=== PATIENT | male | born 1960 | race Hispanic/Latino ===

== ENCOUNTER → 2023-06-03 | Emergency (ER) | payer BC ==
[~2023-06-03] MED LIST: ASPIRIN 81 MG CHEWABLE TABLET ONE; ENOXAPARIN 100 MG/ML SYR SQ ONE; FAMOTIDINE 20 MG/2 ML VIAL IV ONE; MAGNESIUM SULFATE 1 gm IVPB 1 GM/100 ML BAG IV ONE
--- NOTE | 2023-06-03 22:23 | RAD REPORT ---
EXAM DESCRIPTION: RAD - Chest Single View - 06/03/2023 10:12 pm CLINICAL HISTORY: PAIN COMPARISON: <Comparisons> FINDINGS: Lines: None. Lungs: No evidence of edema or pneumonia. Pleural: No significant pleural effusions or pneumothorax. Cardiac: The heart size is within normal limits. Mediastinum: Within normal limits. Bones: No acute fractures. Other: External defibrillator. IMPRESSION: No acute cardiopulmonary disease.
[2023-06-03 22:38] LABS: Absolute Lymphocytes (CBC) 1.8 K/uL (0.7-4.9); Hematocrit 39.2 % (39.6-49.0); Lymphocytes % 18.2 % (15.3-44.8); MCV 90.3 fL (80-100); MPV 8.5 fL (7.6-11.3); Platelets 227 thou/uL (152-406); RBC Red Blood Cell Count 4.35 M/uL (4.33-5.43)
[2023-06-03 22:53] LABS: Protime INR 1.02
[2023-06-03 22:57] LABS: Albumin 3.6 g/dL (3.4-5.0); Bilirubin Direct 0.1 mg/dL (0-0.2); Bilirubin Indirect, Calculated 0.3 mg/dL (0.2-0.8); Bilirubin Total 0.4 mg/dL (0.2-1.0); Magnesium 1.9 mg/dL (1.6-2.4); Potassium 4.2 mEq/L (3.5-5.1); Protein, Total 7.3 g/dL (6.4-8.2)
[2023-06-03 23:01] LABS: Specific Gravity 1.024 (1.005-1.030); Urine Bacteria None Seen /HPF (<20); Urine Bilirubin NEGATIVE (Negative); Urine Blood Negative (Negative); Urine Clarity Clear (Clear); Urine Color Light-Yellow (Yellow); Urine Glucose 3+ (Negative); Urine Mucus Slight /HPF (None Seen); Urine Protein TRACE (Negative); Urine RBC <5 /HPF (None Seen); Urine Urobilinogen Normal (Normal); Urine pH 5.5 (5.0-7.0)
--- NOTE | 2023-06-04 00:10 | EDPHYS ---
Physician Documentation [facility] Name: Win Yang Age: 63 yrs Sex: Male : 1960 Arrival Date: 06/03/2023 Time: 21:48 Bed 6 Private MD: ED Physician Sudarshan Escalona HPI: 06/04 00:03 This 63 yrs old Male presents to ER via Ambulatory with complaints of Life aidee vest problem. 00:03 The patient has shortness of breath with light activity. Onset: The symptoms/episode aidee began/occurred just prior to arrival. Duration: The symptoms are intermittent, with no pattern. The patient's shortness of breath is aggravated by exertion, light activity, is alleviated by nothing, rest, application of supplemental oxygen. The patient or guardian reports chest pain that is located primarily in the anterior chest wall, bilaterally. The pain does not radiate. Associated signs and symptoms: Pertinent positives: chest pain. Severity of symptoms: At their worst the symptoms were moderate in the emergency department the symptoms have improved moderately. The chest pain is described as vague. Historical: - Allergies: 06/03 22:10 No Known Allergies; cm10 - PMHx: 22:10 Hypertensive disorder; heart failure; cm10 22:10 life vest; cm10 - Immunization history:: Adult Immunizations unknown. - Social history:: Smoking status: Patient denies any tobacco usage or history of. - Family history:: not pertinent. ROS: 06/04 00:03 Constitutional: Negative for fever, chills, and weight loss, Eyes: Negative for injury, aidee pain, redness, and discharge, ENT: Negative for injury, pain, and discharge, Neck: Negative for injury, pain, and swelling, Cardiovascular: Negative for chest pain, palpitations, and edema, Abdomen/GI: Negative for abdominal pain, nausea, vomiting, diarrhea, and constipation, Back: Negative for injury and pain, : Negative for injury, bleeding, discharge, and swelling, MS/Extremity: Negative for injury and deformity, Skin: Negative for injury, rash, and discoloration, Neuro: Negative for headache, weakness, numbness, tingling, and seizure, Psych: Negative for depression, anxiety, suicide ideation, homicidal ideation, and hallucinations, Allergy/Immunology: Negative for hives, rash, and allergies, Endocrine: Negative for neck swelling, polydipsia, polyuria, polyphagia, and marked weight changes, Hematologic/Lymphatic: Negative for swollen nodes, abnormal bleeding, and unusual bruising, Respiratory: Positive for shortness of breath, at rest. Exam: 00:03 Constitutional: This is a well developed, well nourished patient who is awake, alert, aidee and in no acute distress. Head/Face: Normocephalic, atraumatic. Eyes: Pupils equal round and reactive to light, extra-ocular motions intact. Lids and lashes normal. Conjunctiva and sclera are non-icteric and not injected. Cornea within normal limits. Periorbital areas with no swelling, redness, or edema. ENT: Nares patent. No nasal discharge, no septal abnormalities noted. Tympanic membranes are normal and external auditory canals are clear. Oropharynx with no redness, swelling, or masses, exudates, or evidence of obstruction, uvula midline. Mucous membranes moist. Neck: Trachea midline, no thyromegaly or masses palpated, and no cervical lymphadenopathy. Supple, full range of motion without nuchal rigidity, or vertebral point tenderness. No Meningismus. Chest/axilla: Normal chest wall appearance and motion. Nontender with no deformity. No lesions are appreciated. Cardiovascular: Regular rate and rhythm with a normal S1 and S2. No gallops, murmurs, or rubs. Normal PMI, no JVD. No pulse deficits. Respiratory: Lungs have equal breath sounds bilaterally, clear to auscultation and percussion. No rales, rhonchi or wheezes noted. No increased work of breathing, no retractions or nasal flaring. Abdomen/GI: Soft, non-tender, with normal bowel sounds. No distension or tympany. No guarding or rebound. No evidence of tenderness throughout. Back: No spinal tenderness. No costovertebral tenderness. Full range of motion. Male : Normal genitalia with no discharge or lesions. Skin: Warm, dry with normal turgor. Normal color with no rashes, no lesions, and no evidence of cellulitis. MS/ Extremity: Pulses equal, no cyanosis. Neurovascular intact. Full, normal range of motion. Neuro: Awake and alert, GCS 15, oriented to person, place, time, and situation. Cranial nerves II-XII grossly intact. Motor strength 5/5 in all extremities. Sensory grossly intact. Cerebellar exam normal. Normal gait. Psych: Awake, alert, with orientation to person, place and time. Behavior, mood, and affect are within normal limits. 00:03 ECG was reviewed by the Attending Physician. Vital Signs: 06/03 22:08 BP 144 / 75; Pulse 77; Resp 18; Temp 98.2; Pulse Ox 100% on R/A; Weight 97.52 kg; cm10 Height 5 ft. 7 in. ; Pain 0/10; 22:30 BP 144 / 75; Pulse 85; Pulse Ox 100% on R/A; tm6 23:03 BP 123 / 93; Pulse 75; Pulse Ox 100% on R/A; Pain 0/10; tm6 23:50 BP 140 / 83; Pulse 80; Pulse Ox 100% ; Pain 0/10; 6 06/04 00:00 BP 150 / 78; Pulse 82; Resp 18; Pulse Ox 99% on R/A; Pain 0/10; 6 01:00 BP 125 / 68; Pulse 69; Resp 17; Pulse Ox 100% on R/A; Pain 0/10; 6 02:26 BP 136 / 81; Pulse 73; Pulse Ox 99% on R/A; Pain 0/10; 6 06/03 22:08 Body Mass Index 33.67 (97.52 kg, 170.18 cm) cm10 06/03 22:08 Pain Scale: Adult cm10 23:03 Pain Scale: Adult tm6 23:50 Pain Scale: Adult 6 06/04 00:00 Pain Scale: Adult tm6 01:00 Pain Scale: Adult tm6 02:26 Pain Scale: Adult tm6 MDM: 06/03 22:05 Patient medically screened. [facility] 06/04 00:05 Differential diagnosis: CHF exacerbation, abnormal EKG, acute myocardial infarction, aidee acute pericarditis, coronary artery disease gastroesophageal reflux disease (GERD), hiatal hernia, peptic ulcer disease, pericarditis, pulmonary embolus, stable angina, thoracic aortic disection, unstable angina, Pulmonary Embolism. Antibiotic administration: Not indicated. HEART Score: History: Moderately Suspicious (1), ECG: Non specific repolarization disturbance / LBTB / PM (1), Age: > 45 and < 65 years (1), Risk Factors: > or = 3 Risk factors for atherosclerotic disease (2), [Hypercholesterolemia] [Hypertension] [+ Family HX] [Obesity] Troponin: > 1 and < 3 x normal limit (1), Total Score = 6. The patient was given aspirin in the Emergency Department. PATTI Risk Score: 1 - Three or more CAD risk factors, 1- Known CAD, 1 - Recent [<24hrs] Severe Angina, 1 - Elevated Cardiac Markers, TOTAL SCORE = 4. Immunization status: Influenza vaccine: within last 5 years. Data reviewed: vital signs, nurses notes, lab test result(s), EKG. Consideration of Admission/Observation Escalation of care including admission/observation considered. I considered the following discharge prescriptions or medication management in the emergency department Medications were administered in the Emergency Department. See MAR. Independent interpretation of the following test(s) in the Emergency Department EKG: See my EKG interpretation above. Test considered but Not performed: CT: no ct pe. Care significantly affected by the following chronic conditions: Hypertension, Congestive Heart Failure. Counseling: I had a detailed discussion with the patient and/or guardian regarding the historical points, exam findings, and any diagnostic results supporting the discharge/admit diagnosis, the presence of at least one elevated blood pressure reading (>120/80) during this emergency department visit, lab results, radiology results, the need to transfer to another facility, for higher level of care, [facility] does not immediately have the required specialist. 06/03 22:04 Order name: Basic Metabolic Panel; Complete Time: 23:23 [facility] 06/03 22:04 Order name: CBC with Diff; Complete Time: 23:23 [facility] 06/03 22:04 Order name: LFT's; Complete Time: 23:23 [facility] 06/03 22:04 Order name: Magnesium; Complete Time: 23:23 [facility] 06/03 22:04 Order name: NT PRO-BNP; Complete Time: 23:23 [facility] 06/03 22:04 Order name: PT-INR; Complete Time: 23:23 [facility] 06/03 22:04 Order name: Troponin HS; Complete Time: 23:23 [facility] 06/03 22:04 Order name: Lipase; Complete Time: 23:23 [facility] 06/03 22:04 Order name: Urinalysis w/ reflexes; Complete Time: 23:23 [facility] 06/03 22:04 Order name: XRAY Chest (1 view); Complete Time: 23:23 [facility] 06/03 22:04 Order name: EKG; Complete Time: 22:05 [facility] 06/03 22:04 Order name: Cardiac monitoring; Complete Time: 22:30 [facility] 06/03 22:04 Order name: EKG - Nurse/Tech; Complete Time: 22:50 [facility] 06/03 22:04 Order name: IV Saline Lock; Complete Time: 22:30 [facility] 06/03 22:04 Order name: Labs collected and sent; Complete Time: 22:30 [facility] 06/03 22:04 Order name: O2 Per Protocol; Complete Time: :30 [facility] 06/03 22:04 Order name: O2 Sat Monitoring; Complete Time: 22:30 [facility] EC:03 Rate is 76 beats/min. Rhythm is regular. QRS [place] is Normal. PA interval is normal. QRS aidee interval is normal. QT interval is normal. No Q waves. T waves are Normal. No ST changes noted. Clinical impression: NSR w/ Non-specific ST/T Changes and No evidence of ischemia. Interpreted by me. Reviewed by me. Administered Medications: 06/03 23:47 Drug: Famotidine IVP 20 mg IVP once; dilute with 10 mL 0.9% NaCl; give over 2 minutes tm6 Route: IVP; Site: right wrist; 23:47 Drug: Magnesium Sulfate IVPB 1 grams IVPB once over 1 hrs Route: IVPB; Infused Over: 1 tm6 hrs; Site: right wrist; 23:47 Drug: Enoxaparin Sub-Q 1 mg/kg Sub-Q once Route: Sub-Q; Site: right lower abdomen; tm6 23:48 Drug: Aspirin PO Chewable Tablet 81 mg PO once Route: PO; tm6 Disposition Summary: 06/04/23 00:09 Transfer Ordered Notes: Transfer Location: [facility] aidee Reason: Higher level of care aidee Condition: Fair aidee Problem: new aidee Symptoms: have improved aidee Accepting Physician: to [facility](06/04/23 02:27) tm6 Diagnosis - Weakness aidee - Cardiac arrhythmia, unspecified - life vest, 3 discharges aidee - Non ST elevation [place] aidee - Type 2 diabetes mellitus with hyperglycemia aidee Forms: - Medication Reconciliation Form aidee - SBAR form aidee Signatures: Dispatcher [employer] Sudarshan Millan MD MD cha Martinez, Clarissa RN RN cm10 Misty Vargsa RN RN tm6 Corrections: (The following items were deleted from the chart) 06/04 00:10 00:09 to [facility] 02 00:10 to [facility]
--- NOTE | 2023-06-04 00:10 | ER ---
Nurse's Notes [facility] Name: Win Yang Age: 63 yrs Sex: Male : 1960 Arrival Date: 06/03/2023 Time: 21:48 Bed 6 Private MD: Diagnosis: Weakness;Cardiac arrhythmia, unspecified-life vest, 3 discharges;Non ST elevation [place];Type 2 diabetes mellitus with hyperglycemia Presentation: 06/03 22:08 Chief complaint: Patient states: His life vest shocked him 3 times tonight. Pt states cm10 that he felt it shock him once. Coronavirus screen: Vaccine status: Patient reports being unvaccinated. Client denies travel out of the [place] in the last 14 days. Ebola Screen: Patient denies travel to an Ebola-affected area in the 21 days before illness onset. No symptoms or risks identified at this time. Initial Sepsis Screen: Does the patient meet any 2 criteria? No. Patient's initial sepsis screen is negative. Does the patient have a suspected source of infection? No. Patient's initial sepsis screen is negative. Risk Assessment: Do you want to hurt yourself or someone else? Patient reports no desire to harm self or others. Onset of symptoms was June 03, 2023. 22:08 Method Of Arrival: Ambulatory cm10 22:08 Acuity: WILLIE 3 cm10 Historical: - Allergies: 22:10 No Known Allergies; cm10 - PMHx: 22:10 Hypertensive disorder; heart failure; cm10 22:10 life vest; cm10 - Immunization history:: Adult Immunizations unknown. - Social history:: Smoking status: Patient denies any tobacco usage or history of. - Family history:: not pertinent. Screenin:32 [facility] ED Fall Risk Assessment (Adult) History of falling in the last 3 months, tm6 including since admission No falls in past 3 months (0 pts). Abuse screen: Denies threats or abuse. Denies injuries from another. Nutritional screening: No deficits noted. Tuberculosis screening: No symptoms or risk factors identified. Assessment: 22:30 General: Appears in no apparent distress. Behavior is calm, cooperative. Pain: Denies tm6 pain. Neuro: Level of Consciousness is awake, alert, obeys commands, Oriented to person, place, time, situation. Cardiovascular: Capillary refill < 3 seconds Patient's skin is warm and dry. Rhythm is sinus rhythm. Respiratory: Airway is patent Respiratory effort is even, unlabored, Respiratory pattern is regular, symmetrical. GI: Abdomen is round non-distended. : No signs and/or symptoms were reported regarding the genitourinary system. EENT: No signs and/or symptoms were reported regarding the EENT system. Derm: No signs and/or symptoms reported regarding the dermatologic system. Musculoskeletal: No signs and/or symptoms reported regarding the musculoskeletal system. 23:03 Reassessment: Patient appears in no apparent distress at this time. Patient and/or tm6 family updated on plan of care and expected duration. Pain level reassessed. Patient is alert, oriented x 3, equal unlabored respirations, skin warm/dry/pink. 23:50 Reassessment: Patient appears in no apparent distress at this time. Patient and/or tm6 family updated on plan of care and expected duration. Pain level reassessed. Patient is alert, oriented x 3, equal unlabored respirations, skin warm/dry/pink. 06/04 01:16 Reassessment: Patient appears in no apparent distress at this time. Patient and/or tm6 family updated on plan of care and expected duration. Pain level reassessed. Patient is alert, oriented x 3, equal unlabored respirations, skin warm/dry/pink. 02:26 Reassessment: report called to [facility] CCU Paige BAXTER. tm6 02:27 Reassessment: Patient and/or family updated on plan of care and expected duration. Pain tm6 level reassessed. Patient is alert, oriented x 3, equal unlabored respirations, skin warm/dry/pink. Vital Signs: 06/03 22:08 BP 144 / 75; Pulse 77; Resp 18; Temp 98.2; Pulse Ox 100% on R/A; Weight 97.52 kg; cm10 Height 5 ft. 7 in. ; Pain 0/10; 22:30 BP 144 / 75; Pulse 85; Pulse Ox 100% on R/A; tm6 23:03 BP 123 / 93; Pulse 75; Pulse Ox 100% on R/A; Pain 0/10; tm6 23:50 BP 140 / 83; Pulse 80; Pulse Ox 100% ; Pain 0/10; tm6 06/04 00:00 BP 150 / 78; Pulse 82; Resp 18; Pulse Ox 99% on R/A; Pain 0/10; tm6 01:00 BP 125 / 68; Pulse 69; Resp 17; Pulse Ox 100% on R/A; Pain 0/10; tm6 02:26 BP 136 / 81; Pulse 73; Pulse Ox 99% on R/A; Pain 0/10; tm6 06/03 22:08 Body Mass Index 33.67 (97.52 kg, 170.18 cm) cm10 06/03 22:08 Pain Scale: Adult cm10 23:03 Pain Scale: Adult tm6 23:50 Pain Scale: Adult tm6 06/04 00:00 Pain Scale: Adult tm6 01:00 Pain Scale: Adult tm6 02:26 Pain Scale: Adult tm6 ED Course: 06/03 21:50 Patient arrived in ED. mr 22:05 Sudarshan Escalona MD is Attending Physician. aidee 22:10 Triage completed. cm10 22:10 Arm band placed on Patient placed in an exam room, on a stretcher, on cardiac cath tech, cm10 on pulse oximetry. 22:14 XRAY Chest (1 view) In Process Unspecified. EDMS 22:32 Patient has correct armband on for positive identification. Bed in low position. Call tm6 light in reach. Side rails up X2. Provided Education on: plan of care. Client placed on continuous cardiac and pulse oximetry monitoring. NIBP monitoring applied. cardiac monitor on. Door closed. Noise minimized. 22:32 No provider procedures requiring assistance completed. Inserted saline lock: 20 gauge tm6 in right wrist, using aseptic technique. Missed attempt(s): 20 gauge in right antecubital area. 23:00 Notified ED physician of a critical lab result(s). Trop 178. jb4 06/04 01:55 Accepted to [facility] RM [id number], by [id number] per Sari Mendoza. vk 02:26 Patient transferred, IV remains in place. tm6 02:29 Transported to [facility] RM: [id number] by [facility]. vk Administered Medications: 06/03 23:47 Drug: Famotidine IVP 20 mg IVP once; dilute with 10 mL 0.9% NaCl; give over 2 minutes tm6 Route: IVP; Site: right wrist; 23:47 Drug: Magnesium Sulfate IVPB 1 grams IVPB once over 1 hrs Route: IVPB; Infused Over: 1 tm6 hrs; Site: right wrist; 23:47 Drug: Enoxaparin Sub-Q 1 mg/kg Sub-Q once Route: Sub-Q; Site: right lower abdomen; tm6 23:48 Drug: Aspirin PO Chewable Tablet 81 mg PO once Route: PO; tm6 Medication: 06/04 02:26 VIS not applicable for this client. tm6 Outcome: 00:09 ER care complete, transfer ordered by MD. hoskins 02:25 Transferred by ground EMS to [facility], tm6 02:25 Condition: stable 02:25 Instructed on the need for transfer, Demonstrated understanding of instructions, 02:27 Patient left the ED. tm6 Signatures: Dispatcher [employer] EDMS Sudarshan Escalona MD MD cha Rivera, Mary, Reg Reg David Stephen, RN RN jb4 Addis Madrid, RN RN cm10 Misty Vargas RN RN [email or web address] Maricruz Champagne Corrections: (The following items were deleted from the chart) 03:38 01:55 Patient was accepted to [facility] RM [id number] by \[id number] per sari reyes vk
[2023-06-04 07:55] VITALS: TEMP 98.2
[2023-06-04 08:23] VITALS: O2SAT 99
[2023-06-04 08:30] VITALS: BP 136/81
--- NOTE | 2023-06-04 15:28 | EKG ---
Test Date: 2023-06-03 Test Time: 22:39:59 Roofing Supervisor: GO MEASUREMENT RESULTS: Intervals: Rate: 76 NC: 168 QRSD: 96 QT: 380 QTc: 427 [place]: P: 58 NC: 168 QRS: -54 T: 94 INTERPRETIVE STATEMENTS: Normal sinus rhythm Incomplete right bundle branch block Left anterior fascicular block Cannot rule out Anteroseptal infarct, age undetermined T wave abnormality, consider lateral ischemia Abnormal ECG No previous ECG available for comparison Electronically Signed On 06-04-23 15:26:45 FISCAL SERVICES MANAGER by Krzysztof Hughes
== END ==
LOC: ER 21:48
DX: I21.4 Non-ST elevation (NSTEMI) myocardial infarction (principal); R53.1 Weakness; E11.65 Type 2 diabetes mellitus with hyperglycemia; I10 Essential (primary) hypertension; I50.9 Heart failure, unspecified; Z95.811 Presence of heart assist device
CPT/HCPCS: 93005; 85025; 81001; 80048; 36415; 83735; 85610; 80076; 84484; 83690; 83880; 71045; 96375; 96372; 96374; 99285; J3475; J1650

== ENCOUNTER 2024-08-27 23:54 | Emergency (ER) | payer BC ==
[2024-08-28] MEDS ORDERED: ONDANSETRON 4 MG/2 ML VIAL ONE (00:35)
[2024-08-28] MEDS ORDERED: FAMOTIDINE 20 MG/2 ML VIAL IV ONE (00:35)
[2024-08-28] MEDS ORDERED: NA CHLORIDE 0.9% 1,000 ML ONE ×2 (00:35→02:06)
[2024-08-28 00:59] LABS: Absolute Basophils 0.1 K/uL (0-0.5); Absolute Lymphocytes (CBC) 0.2 K/uL (0.7-4.9); Absolute Monocytes 0.3 K/uL (0.1-1.3); Absolute Neutrophil 10.2 K/uL (1.8-8.0); Basophils % 0.5 % (0-1.3); Hematocrit 44.6 % (39.6-49.0); Hemoglobin 14.8 g/dL (13.6-17.9); Lymphocytes % 2.1 % (15.3-44.8); MCH 31.8 pg (27.0-35.0); MCHC 33.2 g/dL (32.0-36.0); MCV 95.9 fL (80-100); MPV 8.7 fL (7.6-11.3); Monocytes % 3.1 % (3.3-12.3); Neutrophils % 94.3 % (41.7-73.7); Platelets 231 thou/uL (152-406); RBC Red Blood Cell Count 4.65 M/uL (4.33-5.43); Red Cell Distribution Width 15.1 % (12.1-15.2)
[2024-08-28 01:09] LABS: Albumin 3.7 g/dL (3.4-5.0); Albumin/Globulin Ratio 0.9 (1.1-1.8); Anion Gap 10.7 mEq/L (5.0-15.0); Bilirubin Total 0.7 mg/dL (0.2-1.0); Potassium 3.7 mEq/L (3.5-5.1); Protein, Total 7.7 g/dL (6.4-8.2)
[2024-08-28 01:32] LABS: Band Neutrophils 12 % (0-1); Differential Total Cells Count 100; Lymphocytes 4 % (15-42); Monocytes 4 % (0-10); Segmented Neutrophils 80 % (40-80)
[2024-08-28 01:33] LABS: Blood Morphology Comment NOT SEEN (NOT SEEN); Platelet Estimate ADEQ
[2024-08-28] MEDS ORDERED: DIPHENOX/ATROP SULF 1 TAB PO ONE (02:05)
[2024-08-28] MEDS ORDERED: PROMETHAZINE 25 MG TABLET ONE (02:05)
--- NOTE | 2024-08-28 03:43 | ER ---
Nurse's Notes [facility] Name: Win Yang Age: 64 yrs Sex: Male : 1960 Arrival Date: 08/27/2024 Time: 23:54 Bed 6 Private MD: Diagnosis: Acute nausea and vomting, acute diarrheal illness, acute gastroenteritis Presentation: 08/28 00:28 Chief complaint: Patient states: ate a hamburger last night that tasted funny, today vc1 started vomiting and diarrhea, can't keep anything down. Coronavirus screen: Client denies travel out of the [place] in the last 14 days. At this time, the client does not indicate any symptoms associated with coronavirus-19. Ebola Screen: Patient negative for fever greater than or equal to 101.5 degrees Fahrenheit, and additional compatible Ebola Virus Disease symptoms Patient denies exposure to infectious person. Patient denies travel to an Ebola-affected area in the 21 days before illness onset. No symptoms or risks identified at this time. Initial Sepsis Screen: Does the patient meet any 2 criteria? No. Patient's initial sepsis screen is negative. Does the patient have a suspected source of infection? No. Patient's initial sepsis screen is negative. Risk Assessment: Do you want to hurt yourself or someone else? Patient reports no desire to harm self or others. Onset of symptoms was August 27, 2024. Care prior to arrival: None. Activity prior to arrival: vomiting. Mechanism of Injury: No Mechanism of Injury. Transition of care: patient was not received from another setting of care. 00:28 Method Of Arrival: Ambulatory vc1 00:28 Acuity: WILLIE 3 vc1 Triage Assessment: 00:20 General: Appears in no apparent distress. uncomfortable, obese, well groomed, well vc1 developed, well nourished, Behavior is calm, cooperative, appropriate for age. Pain: Complains of pain in abdomen. EENT: No deficits noted. No signs and/or symptoms were reported regarding the EENT system. Neuro: Level of Consciousness is awake, alert, obeys commands, Oriented to person, place, time, situation, Appropriate for age. Cardiovascular: Heart tones S1 S2 present Capillary refill < 3 seconds Patient's skin is warm and dry. Respiratory: Airway is patent Respiratory effort is even, unlabored, Respiratory pattern is regular, symmetrical, Breath sounds are clear bilaterally. GI: Reports diarrhea, intolerance of fluids, intolerance of food, nausea, vomiting. : No deficits noted. No signs and/or symptoms were reported regarding the genitourinary system. Derm: Skin is intact, is healthy with good turgor, Skin is dry, Skin is normal, Skin temperature is warm. Musculoskeletal: Circulation, motion, and sensation intact. Range of motion: intact in all extremities. Historical: - Allergies: 00:31 No Known Allergies; vc1 - Home Meds: 00:31 Entresto 24-26 mg oral tablet 0.5 tab 2 times per day [Active]; amiodarone 200 mg Oral vc1 tablet [Active]; Plavix 75 mg Oral tablet [Active]; potassium chloride 10 mEq Oral tablet, extended release [Active]; spironolactone 25 mg Oral tablet [Active]; empagliflozin-jarbiance 10 mg [Active]; Lasix 40 mg Oral tablet [Active]; metoprolol tartrate 25 mg Oral tablet [Active]; pantoprazole 40 mg oral tablet, delayed release (enteric coated) [Active]; atorvastatin 80 mg oral tablet [Active]; - PMHx: 00:31 HEART FAILURE; Hypertensive disorder; Life vest; vc1 - PSHx: 00:31 None; vc1 - Immunization history:: Client reports having NOT received the Covid vaccine. Flu vaccine is not up to date. - Infectious Disease History:: Denies. - Social history:: Smoking status: Patient denies any tobacco usage or history of. - Family history:: not pertinent. Screenin:00 [facility] ED Fall Risk Assessment (Adult) History of falling in the last 3 months, ha1 including since admission No falls in past 3 months (0 pts) Confusion or Disorientation No (0 pts) Intoxicated or Sedated No (0 pts) Impaired Gait No (0 pts) Mobility Assist Device Used No (0 pt) Altered Elimination No (0 pt) Score/Fall Risk Level 0 - 2 = Low Risk Oriented to surroundings, Maintained a safe environment, Educated pt \T\ family on fall prevention, incl call for assistance when getting out of bed, Hourly rounding (assess needs \T\ fall precautionary measures) done. Abuse screen: Denies threats or abuse. Denies injuries from another. Nutritional screening: No deficits noted. Tuberculosis screening: No symptoms or risk factors identified. Assessment: 00:30 General: Appears uncomfortable, Behavior is calm, cooperative. Pain: Complains of pain ha1 in abdomen Pain currently is 7 out of 10 on a pain scale. Quality of pain is described as crampy. Neuro: Level of Consciousness is awake, alert, obeys commands, Oriented to person, place, time, situation. Cardiovascular: Patient's skin is warm and dry. Respiratory: Airway is patent Respiratory effort is even, unlabored, Respiratory pattern is regular, symmetrical. GI: Abdomen is round non-distended, obese, Bowel sounds present X 4 quads. Abd is soft and non tender X 4 quads. Reports diarrhea, nausea, vomiting. : No signs and/or symptoms were reported regarding the genitourinary system. Derm: Skin is pink, warm \T\ dry. Musculoskeletal: Circulation, motion, and sensation intact. Range of motion: intact in all extremities. 01:30 Reassessment: Patient and/or family updated on plan of care and expected duration. Pain ha1 level reassessed. Patient is alert, oriented x 3, equal unlabored respirations, skin warm/dry/pink. 02:20 Reassessment: Patient and/or family updated on plan of care and expected duration. Pain ha1 level reassessed. Patient is alert, oriented x 3, equal unlabored respirations, skin warm/dry/pink. 03:40 Reassessment: Patient and/or family updated on plan of care and expected duration. Pain ha1 level reassessed. Patient is alert, oriented x 3, equal unlabored respirations, skin warm/dry/pink. Patient denies pain at this time. Patient states feeling better. Patient states symptoms have improved. Vital Signs: 00:28 BP 139 / 73; Pulse 79; Resp 16; Temp 98.3; Pulse Ox 100% ; Weight 95.25 kg; Height 5 vc1 ft. 8 in. ; 01:35 BP 124 / 75; Pulse 75; Resp 19 S; Pulse Ox 99% on R/A; ha1 02:30 BP 107 / 60; Pulse 72; Resp 18 S; Pulse Ox 99% ; ha1 03:30 BP 117 / 74; Pulse 71; Resp 18 S; Pulse Ox 100% on R/A; ha1 00:28 Body Mass Index 31.93 (95.25 kg, 172.72 cm) vc1 Dontae Coma Score: 08/29 01:24 Eye Response: spontaneous(4). Motor Response: obeys commands(6). Verbal Response: sp4 oriented(5). Total: 15. ED Course: 08/28 00:01 Patient arrived in ED. gm2 00:13 Asad Barnes MD is Attending Physician. sp4 00:31 Triage completed. vc1 00:35 Arm band placed on left wrist. vc1 00:37 Patient has correct armband on for positive identification. Bed in low position. Call vc1 light in reach. Pulse ox on. NIBP on. 00:38 Inserted saline lock: 22 gauge in right forearm, using aseptic technique. Blood mm11 collected. Flushed with 10 mL NS. 00:39 CBC with Diff Sent. mm11 00:39 CMP Sent. mm11 00:39 Lipase Sent. mm11 00:58 CBC with Diff Sent. ha1 00:58 CMP Sent. ha1 00:58 Lipase Sent. ha1 01:01 Jany Barr, VEE is Primary Nurse. ha1 01:30 Provided Education on: medication administration . ha1 04:00 No provider procedures requiring assistance completed. IV discontinued, intact, ha1 bleeding controlled, No redness/swelling at site. Pressure dressing applied. Administered Medications: 00:40 Drug: Famotidine IVP 20 mg IVP once; dilute with 10 mL 0.9% NaCl; give over 2 minutes ha1 Route: IVP; Site: right forearm; 01:00 Follow up: Response: No adverse reaction; Nausea is decreased ha1 00:40 Drug: NS 0.9% IV 1000 ml IV at 1 bolus Per protocol; to be given as a bolus over 60 ha1 minutes Route: IV; Rate: 1 bolus; Site: right forearm; 03:00 Follow up: Response: No adverse reaction; Marked relief of symptoms ha1 04:02 Follow up: Response: No adverse reaction; IV Status: Completed infusion ha1 00:43 Drug: Ondansetron IVP 8 mg IVP once; over 2 minutes Route: IVP; Site: right forearm; ha1 03:00 Follow up: Response: No adverse reaction; Marked relief of symptoms; Nausea is decreasedha1 02:20 Drug: NS 0.9% IV 1000 ml IV at 1 bolus Per protocol; to be given as a bolus over 60 ha1 minutes Route: IV; Rate: 1 bolus; Site: right antecubital; 04:01 Follow up: Response: No adverse reaction; IV Status: Completed infusion; IV Intake: ha1 1000ml 02:20 Drug: Diphenoxylate-Atropine PO 2 tabs PO once Route: PO; ha1 03:00 Follow up: Response: No adverse reaction; Marked relief of symptoms ha1 02:20 Drug: Promethazine PO 25 mg PO once Route: PO; ha1 03:30 Follow up: Response: No adverse reaction; Nausea is decreased ha1 Medication: 03:00 VIS not applicable for this client. ha1 Intake: 04:01 IV: 1000ml; Total: 1000ml. ha1 Outcome: 03:43 Discharge ordered by MD. persaud 04:00 Discharged to home ambulatory, ha1 04:00 Condition: stable 04:00 Discharge instructions given to patient, Instructed on discharge instructions, follow up and referral plans. medication usage, Demonstrated understanding of instructions, follow-up care, medications, Prescriptions given X 2, 04:02 Patient left the ED. ha1 Signatures: Remedios Nails RN RN vc1 Jany Barr RN RN ha1 Asad Barnes MD MD sp4 Katharine Lopez 2 lenard robert mm11
--- NOTE | 2024-08-28 03:43 | EDPHYS ---
Physician Documentation [facility] Name: Win Yang Age: 64 yrs Sex: Male : 1960 Arrival Date: 08/27/2024 Time: 23:54 Bed 6 Private MD: ED Physician Asad Barnes HPI: 08/28 00:13 This 64 yrs old Male presents to ER via Unassigned with complaints of sp4 Nausea/Vomiting/Diarrhea. 08/29 01:24 64-year-old male presents with complaint of nausea vomiting and diarrhea since sp4 yesterday. History diabetes, hypertension, heart failure.. Historical: - Allergies: 08/28 00:31 No Known Allergies; vc1 - Home Meds: 00:31 Entresto 24-26 mg oral tablet 0.5 tab 2 times per day [Active]; amiodarone 200 mg Oral vc1 tablet [Active]; Plavix 75 mg Oral tablet [Active]; potassium chloride 10 mEq Oral tablet, extended release [Active]; spironolactone 25 mg Oral tablet [Active]; empagliflozin-jarbiance 10 mg [Active]; Lasix 40 mg Oral tablet [Active]; metoprolol tartrate 25 mg Oral tablet [Active]; pantoprazole 40 mg oral tablet, delayed release (enteric coated) [Active]; atorvastatin 80 mg oral tablet [Active]; - PMHx: 00:31 HEART FAILURE; Hypertensive disorder; Life vest; vc1 - PSHx: 00:31 None; vc1 - Immunization history:: Client reports having NOT received the Covid vaccine. Flu vaccine is not up to date. - Infectious Disease History:: Denies. - Social history:: Smoking status: Patient denies any tobacco usage or history of. - Family history:: not pertinent. ROS: 08/29 01:24 Constitutional: Negative for fever, chills, and weight loss, positive nausea, positive sp4 vomiting, positive diarrhea, positive generalized weakness All other systems are negative, Exam: 01:24 Constitutional: This is a well developed, well nourished patient who is awake, alert, sp4 and in no acute distress. Head/Face: Normocephalic, atraumatic. Eyes: Pupils equal round and reactive to light, extra-ocular motions intact. Lids and lashes normal. Conjunctiva and sclera are not injected. Cornea within normal limits. Periorbital areas with no swelling, redness, or edema. ENT: Nares patent. No nasal discharge, no septal abnormalities noted. Tympanic membranes are normal and external auditory canals are clear. Oropharynx with no redness, swelling, or masses, exudates, or evidence of obstruction, uvula midline. Mucous membranes moist. Neck: Trachea midline, no thyromegaly or masses palpated, and no cervical lymphadenopathy. Supple, full range of motion without nuchal rigidity, or vertebral point tenderness. Chest/axilla: Normal chest wall appearance and motion. Nontender with no deformity. No lesions are appreciated. Cardiovascular: Regular rate and rhythm with a normal S1 and S2. No gallops, murmurs, or rubs. Normal PMI, no JVD. No pulse deficits. Respiratory: Lungs have equal breath sounds bilaterally, clear to auscultation and percussion. No rales, rhonchi or wheezes noted. No increased work of breathing, no retractions or nasal flaring. Abdomen/GI: Soft, with normal bowel sounds. No distension or tympany. No guarding or rebound. No evidence of tenderness throughout. Back: No spinal tenderness. No costovertebral tenderness. Skin: Warm, dry with normal turgor. Normal color with no rashes, no lesions, and no evidence of cellulitis. MS/ Extremity: Pulses equal, no cyanosis. Neurovascular intact. Full, normal range of motion. Neuro: Awake and alert, GCS 15, oriented to person, place, time, and situation. Cranial nerves II-XII grossly intact. Motor strength 5/5 in all extremities. Sensory grossly intact. Psych: Awake, alert, with orientation to person, place and time. Behavior, mood, and affect are within normal limits Vital Signs: 08/28 00:28 BP 139 / 73; Pulse 79; Resp 16; Temp 98.3; Pulse Ox 100% ; Weight 95.25 kg; Height 5 vc1 ft. 8 in. ; 01:35 BP 124 / 75; Pulse 75; Resp 19 S; Pulse Ox 99% on R/A; ha1 02:30 BP 107 / 60; Pulse 72; Resp 18 S; Pulse Ox 99% ; ha1 03:30 BP 117 / 74; Pulse 71; Resp 18 S; Pulse Ox 100% on R/A; ha1 00:28 Body Mass Index 31.93 (95.25 kg, 172.72 cm) vc1 Dontae Coma Score: 08/29 01:24 Eye Response: spontaneous(4). Motor Response: obeys commands(6). Verbal Response: sp4 oriented(5). Total: 15. MDM: 08/28 03:43 Medical Screening Exam initiated sp4 08/29 01:24 Differential diagnosis: Nonspecific abd pain, gastritis, viral gastroenteritis, sp4 gastroenteritis. Data reviewed: vital signs, nurses notes, lab test result(s), CBC, electrolytes, hepatic panel. Consideration of Admission/Observation Escalation of care including admission/observation considered. ED course: Patient felt much improved after hydration and nausea management. Stable for discharge home.. 08/28 00:15 Order name: CBC with Diff; Complete Time: 03:30 sp4 08/28 00:15 Order name: CMP; Complete Time: 03:30 sp4 08/28 00:15 Order name: Lipase; Complete Time: 03:30 sp4 08/28 01:02 Order name: Manual Differential; Complete Time: 03:30 EDMS 08/28 00:15 Order name: IV Saline Lock; Complete Time: 00:38 sp4 08/28 00:15 Order name: Labs collected and sent; Complete Time: 00:39 sp4 Administered Medications: 08/28 00:40 Drug: Famotidine IVP 20 mg IVP once; dilute with 10 mL 0.9% NaCl; give over 2 minutes ha1 Route: IVP; Site: right forearm; 01:00 Follow up: Response: No adverse reaction; Nausea is decreased ha1 00:40 Drug: NS 0.9% IV 1000 ml IV at 1 bolus Per protocol; to be given as a bolus over 60 ha1 minutes Route: IV; Rate: 1 bolus; Site: right forearm; 03:00 Follow up: Response: No adverse reaction; Marked relief of symptoms ha1 04:02 Follow up: Response: No adverse reaction; IV Status: Completed infusion ha1 00:43 Drug: Ondansetron IVP 8 mg IVP once; over 2 minutes Route: IVP; Site: right forearm; ha1 03:00 Follow up: Response: No adverse reaction; Marked relief of symptoms; Nausea is decreasedha1 02:20 Drug: NS 0.9% IV 1000 ml IV at 1 bolus Per protocol; to be given as a bolus over 60 ha1 minutes Route: IV; Rate: 1 bolus; Site: right antecubital; 04:01 Follow up: Response: No adverse reaction; IV Status: Completed infusion; IV Intake: ha1 1000ml 02:20 Drug: Diphenoxylate-Atropine PO 2 tabs PO once Route: PO; ha1 03:00 Follow up: Response: No adverse reaction; Marked relief of symptoms ha1 02:20 Drug: Promethazine PO 25 mg PO once Route: PO; ha1 03:30 Follow up: Response: No adverse reaction; Nausea is decreased ha1 Disposition Summary: 08/28/24 03:43 Discharge Ordered Notes: Location: Home sp4 Problem: new sp4 Symptoms: have improved sp4 Condition: Stable sp4 Diagnosis - Acute nausea and vomting, acute diarrheal illness, acute gastroenteritis sp4 Followup: sp4 - With: Private Physician - When: 7 - 10 days - Reason: Recheck today's complaints Discharge Instructions: - Discharge Summary Sheet sp4 - Food Poisoning sp4 - Clear Liquid Diet, Adult, [id number] sp4 Forms: - Patient Portal Instructions sp4 Prescriptions: - Lomotil 2.5-0.025 mg Oral tablet - take 1 tablet ORAL route every 6 hours As needed PRN diarrhea; 30 tablet; sp4 Refills: 0, Product Selection Permitted - ondansetron 8 mg Oral Tablet,disintegrating - take 1 tablet ORAL route every 8 hours PRN nausea; 30 tablet; Refills: 0, sp4 Product Selection Permitted Signatures: Dispatcher [employer] Remedios Erazo RN RN 1 Jany Barr RN RN ha1 Asad Barnes MD MD sp4
[2024-08-28 04:33] VITALS: TEMP 98.3
[2024-08-28 04:46] VITALS: BP 117/74; O2SAT 100
== END 2024-08-28 04:02 | disposition home or self-care (01) ==
LOC: ER 23:54
DX: K52.9 Noninfective gastroenteritis and colitis, unspecified (principal); A08.4 Viral intestinal infection, unspecified; I10 Essential (primary) hypertension; I50.9 Heart failure, unspecified; Z79.01 Long term (current) use of anticoagulants; Z28.310 Unvaccinated for COVID-19
CPT/HCPCS: 96361; 85025; 36415; 83690; 80053; 96375; 96374; 99284; Q0169; J2405; J7030 ×2